=== PATIENT | female | born 1990 | race Caucasian/White ===

== ENCOUNTER 2020-09-19 22:30 | Emergency (ER) | payer BC ==
--- NOTE | 2020-09-19 23:03 | ERPHSYRPT ---
- History of Present Illness Time Seen by Provider: 09/19/20 23:01 Source: patient Exam Limitations: no limitations Patient Subjective Stated Complaint: Patient states " I have been having trouble trying to have a BM now for several weeks. I have only been able to get little christine and it is hard and I am now very miserable." Triage Nursing Assessment: Patient arrived to ED and ambulated back to room without difficulty. Patient A/O times 4. Patient able to follow instructions without difficulty. Patient states she has not had a normal BM in several weeks. Patient stated she is 8-9 weeks and she had same problem with her last . Patient stated she has had N/V over last week. Patient states she did take zofran last night. BS very hypoactive in all 4 quads. ABD is soft, tender upon palpitation. Patient stated she has tried an enema at home with no success. Patient states she has tried taking colace and eating greens and salads with no success. Patient states pain is cramping that will come on severe last a few minutes then go back away. Physician History: Patient states " I have been having trouble trying to have a BM now for several weeks. I have only been able to get little christine and it is hard and I am now very miserable." atient states she has not had a normal BM in several weeks. Patient stated she is 8-9 weeks and she had same problem with her last . Patient stated she has had N/V over last week. Patient states she did take zofran last night. BS very hypoactive in all 4 quads. ABD is soft, tender upon palpitation. Patient stated she has tried an enema at home with no success. Patient states she has tried taking colace and eating greens and salads with no success. Patient states pain is cramping that will come on severe last a few minutes then go back away. Timing/Duration: today Associated Symptoms: denies symptoms Allergies/Adverse Reactions: No Known Drug Allergies Allergy (Unverified 09/19/20 22:47) Home Medications: Vits W-Ca,Fe,FA(<1Mg) [] 1 tab PO DAILY 09/19/20 [History] Hx Tetanus, Diphtheria Vaccination/Date Given: Yes Hx Influenza Vaccination/Date Given: No Hx Pneumococcal Vaccination/Date Given: No Immunizations Up to Date: Yes Travel Risk - International Travel Have you traveled outside of the country in past 3 weeks: No - Coronavirus Screening Are you exhibiting any of the following symptoms?: No Close contact with a COVID-19 positive Pt in past 14-21 Days: No - Vaccine Status Have you recieved a Covid-19 vaccination: No - Review of Systems Constitutional: No Fever, No Chills Eyes: No Symptoms Ears, Nose, & Throat: No Symptoms Respiratory: No Cough, No Dyspnea Cardiac: No Chest Pain, No Edema, No Syncope Abdominal/Gastrointestinal: No Abdominal Pain, No Nausea, No Vomiting, No Diarrhea Genitourinary Symptoms: No Dysuria Musculoskeletal: No Back Pain, No Neck Pain Skin: No Rash Neurological: No Dizziness, No Focal Weakness, No Sensory Changes Psychological: No Symptoms Endocrine: No Symptoms All Other Systems: Reviewed and Negative - Past Medical History Pertinent Past Medical History: Yes Neurological History: No Pertinent History ENT History: No Pertinent History Cardiac History: No Pertinent History Respiratory History: Asthma Endocrine Medical History: No Pertinent History Musculoskeletal History: No Pertinent History GI Medical History: No Pertinent History History: No Pertinent History Psycho-Social History: No Pertinent History Female Reproductive Disorders: No Pertinent History - Past Surgical History Past Surgical History: Yes Neuro Surgical History: No Pertinent History Cardiac: No Pertinent History Respiratory: No Pertinent History Gastrointestinal: No Pertinent History Genitourinary: No Pertinent History Musculoskeletal: No Pertinent History Female Surgical History: Dilation & Curettage Other Surgical History: D&C 2017 - Social History Smoking Status: Former smoker Exposure to second hand smoke: No Drug Use: none Patient Lives Alone: No - Female History Hx Now: Yes Gestational Age: 8-9 weeks - Nursing Vital Signs Nursing Vital Signs: Initial Vital Signs Temperature 97.6 F 09/19/20 22:43 Pulse Rate 79 09/19/20 22:43 Respiratory Rate 20 09/19/20 22:43 Blood Pressure 144/80 09/19/20 22:43 O2 Sat by Pulse Oximetry 96 09/19/20 22:43 Pain Scale Pain Intensity 8 - Physical Exam General Appearance: no apparent distress, alert Eye Exam: PERRL/EOMI, eyes nml inspection Ears, Nose, Throat Exam: normal ENT inspection, TMs normal, pharynx normal, moist mucous membranes Neck Exam: normal inspection, non-tender, supple, full range of motion Respiratory Exam: normal breath sounds, lungs clear, No respiratory distress Cardiovascular Exam: regular rate/rhythm, normal heart sounds, normal peripheral pulses Gastrointestinal/Abdomen Exam: soft, normal bowel sounds, No tenderness, No mass Back Exam: normal inspection, normal range of motion, No CVA tenderness, No vertebral tenderness Extremity Exam: normal inspection, normal range of motion, pelvis stable Neurologic Exam: alert, oriented x 3, cooperative, normal mood/affect, nml cerebellar function, nml station & gait, sensation nml, No motor deficits Skin Exam: normal color, warm, dry, No rash Lymphatic Exam: No adenopathy SpO2: 96 - Course Nursing assessment & vital signs reviewed: Yes - Progress Progress: improved Counseled pt/family regarding: need for follow-up - Departure Departure Disposition: Home Clinical Impression: Constipation during in first trimester Condition: Stable Critical Care Time: No Referrals: JIGNA JUÁREZ [Primary Care Provider] - Instructions: Constipation, Adult (DC) Additional Instructions: LINDY SULLIVAN was seen on 09/19/20 n the Emergency Room. At that time you were treated for an emergent condition, during your visit Laboratory, Radiology and/or other procedures may have been ordered. It is very important that you follow-up with your Primary Care Physician JIGNA JUÁREZ within the next 24-48 hours to review your Emergency Room visit and the final results of testing that was ordered. Some test results such as Urine Cultures, Blood Cultures, and other cultures if ordered will not be finalized for 24-48 hours. If you do not have a Primary Care Provider please call the medical records department at [phone] to obtain a copy of your results or you may sign into our patient portal to obtain these results by visiting us @ [email or web address] and completing the following steps: 1. Click on the Patient Portal link 2. Click the Patient Self Enrollment Link to complete the enrollment form and entering your 3. Once the enrollment form is completed you will receive an email with a temporary ID and password at the email address you provided. 4. Next choose a user name and password. Your user name must be at least 4 characters long and your password must be at least 4 characters long. 5. Choose a security question from the list and provide your answer to the question. If you already have signed into the Health Portal you may access your Health Care Information 13/09 by the following steps: 1. Login to our website @ [email or web address] 2. Enter your original user name and password. FAQS The [facility] Health Portal is an online tool that contains your Lab Results, Radiology Reports, Visit History, Discharge Instructions and Health Summary Lab and Radiology Results will not be available for 72 hours on the portal. The Portal is a secure site, passwords are encryted and URLs are re-written so they cannot be copied and pasted. You and authorized family members are the only ones who can access your Portal. Also there is a timeout feature that protects your information if you leave the Portal page open. If you have technical difficulty please use the Contact Us link on the page this will allow you to submit any questions you have regarding the Portal or you may contact the Medical Record Department at [phone].
[2020-09-19 23:44] VITALS: BP 141/77; PULSE 78; O2SAT 98
== END 2020-09-19 23:49 | disposition home or self-care (01) ==
LOC: ED 22:30
DX: O26.891 Other specified pregnancy related conditions, first trimester (principal); K59.00 Constipation, unspecified; Z3A.09 9 weeks gestation of pregnancy
CPT/HCPCS: 99283

== ENCOUNTER 2020-11-27 18:51 | Emergency (ER) | payer BC ==
[2020-11-27 19:36] VITALS: O2SAT 99
--- NOTE | 2020-11-27 20:43 | ERPHSYRPT ---
- History of Present Illness Time Seen by Provider: 11/27/20 19:30 Historian: patient Exam Limitations: no limitations Patient Subjective Stated Complaint: pt states she thinks she has an ovarian cyst. states she has been having pain in the rt abd for the last 2 days. Triage Nursing Assessment: pt alert and oriented, answers questions approp. pt ambulatory with steady gait noted. respirations nonlabored. skin pink warm and dry. abd nontender, bowel sounds hypo. Physician History: Patient is a 30-year-old female with a history of a right ovarian cyst and torsion presents today with complaints of possible torsion. Patient complains of right pelvic pain similar to pain she had when she was diagnosed with torsion. At that time she had an ovarian cyst. Patient had an ultrasound and August that shows a recurrence of the ovarian cyst. Patient was supposed to follow-up regarding the cyst but never did. Patient's pain at this point is constant mild to moderate in intensity. No specific worsening improving factor s. No associated trauma. No nausea or vomiting. No diarrhea. No rash. No vaginal discharge no vaginal bleeding. Patient declined the possibility of STI. Symptoms are constant. Symptoms are moderate in intensity. Timing/Duration: today Activities at Onset: none Quality: aching Abdominal Pain Onset Location: other (Right side of pelvis.) Pain Radiation: no radiation Severity of Pain-Max: moderate Severity of Pain-Current: mild Modifying Factors: Improves With: nothing Associated Symptoms: denies symptoms Allergies/Adverse Reactions: No Known Drug Allergies Allergy (Verified 11/27/20 19:36) Home Medications: Ondansetron [Ondansetron Odt] 4 mg PO Q6H PRN PRN 09/19/20 [History] Vits W-Ca,Fe,FA(<1Mg) [] 1 tab PO DAILY 09/19/20 [History] Hx Tetanus, Diphtheria Vaccination/Date Given: Yes Hx Influenza Vaccination/Date Given: No Hx Pneumococcal Vaccination/Date Given: No Immunizations Up to Date: Yes Travel Risk - International Travel Have you traveled outside of the country in past 3 weeks: No - Coronavirus Screening Are you exhibiting any of the following symptoms?: No Close contact with a COVID-19 positive Pt in past 14-21 Days: No - Vaccine Status Have you recieved a Covid-19 vaccination: No - Review of Systems Constitutional: No Symptoms, No Fever, No Chills Eyes: No Symptoms Ears, Nose, & Throat: No Symptoms Respiratory: No Symptoms, No Cough, No Dyspnea Cardiac: No Symptoms, No Chest Pain, No Edema, No Syncope Abdominal/Gastrointestinal: No Symptoms, No Abdominal Pain, No Nausea, No Vomiting, No Diarrhea Genitourinary Symptoms: No Symptoms, No Dysuria Musculoskeletal: No Symptoms, No Back Pain, No Neck Pain Skin: No Symptoms, No Rash Neurological: No Symptoms, No Dizziness, No Focal Weakness, No Sensory Changes Psychological: No Symptoms Endocrine: No Symptoms Hematologic/Lymphatic: No Symptoms Immunological/Allergic: No Symptoms All Other Systems: Reviewed and Negative - Past Medical History Pertinent Past Medical History: Yes Neurological History: No Pertinent History ENT History: No Pertinent History Cardiac History: No Pertinent History Respiratory History: Asthma Endocrine Medical History: No Pertinent History Musculoskeletal History: No Pertinent History GI Medical History: No Pertinent History History: No Pertinent History Psycho-Social History: No Pertinent History Female Reproductive Disorders: Other Other Medical History: ovarian cysts - Past Surgical History Past Surgical History: Yes Neuro Surgical History: No Pertinent History Cardiac: No Pertinent History Respiratory: No Pertinent History Gastrointestinal: No Pertinent History Genitourinary: No Pertinent History Musculoskeletal: No Pertinent History Female Surgical History: Dilation & Curettage Other Surgical History: D&C 2017 - Social History Smoking Status: Former smoker Exposure to second hand smoke: No Drug Use: none Patient Lives Alone: No - Female History Hx Last Menstrual Period: july 16 Hx Now: Yes Expected Date of Delivery: 04/28/21 Gestational Age: 18 weeks - Nursing Vital Signs Nursing Vital Signs: Initial Vital Signs Pulse Rate 94 H 11/27/20 19:22 Respiratory Rate 16 11/27/20 19:22 Blood Pressure 125/88 11/27/20 19:22 O2 Sat by Pulse Oximetry 99 11/27/20 19:22 Pain Scale Pain Intensity 5 - Physical Exam General Appearance: no apparent distress, alert Eye Exam: PERRL/EOMI, eyes nml inspection Ears, Nose, Throat Exam: normal ENT inspection, pharynx normal, moist mucous membranes Neck Exam: normal inspection, non-tender, supple, full range of motion Respiratory Exam: normal breath sounds, lungs clear, airway intact, No respiratory distress Cardiovascular Exam: regular rate/rhythm, normal heart sounds Gastrointestinal/Abdomen Exam: soft, No tenderness, No mass Pelvic Exam: other (Tenderness to palpation at area of right adnexa.) Back Exam: normal inspection, normal range of motion, No CVA tenderness, No vertebral tenderness Extremity Exam: normal inspection, normal range of motion, pelvis stable Neurologic Exam: alert, oriented x 3, cooperative, normal mood/affect, nml cereb ellar function, sensation nml, No motor deficits Skin Exam: normal color, warm, dry SpO2 Interpretation: normal SpO2: 99 O2 Delivery: Room Air - Course Nursing assessment & vital signs reviewed: Yes - Radiology Ultrasound Exam Pelvis Ultrasound: discussed w/radiologist (Per armature tester fetus appears well normal heart tones. No torsion. Good blood flow bilateral ovaries) Ordered Tests: Active Orders 24 hr Category Date Time Status OB >14 WKS 1st GESTATION [US] Stat Exams 11/27/20 19:57 Taken UA W/RFX UR CULTURE Stat Lab 11/27/20 21:54 Completed Medication Summary Generic Name Dose Route Start Last Admin Trade Name Freq PRN Reason Stop Dose Admin Nitrofurantoin Macrocrystals 100 mg 11/27/20 22:37 Macrobid 100mg Capsule PO 11/27/20 22:38 STAT ONE Discontinued Medications Generic Name Dose Route Start Last Admin Trade Name Freq PRN Reason Stop Dose Admin Acetaminophen 975 mg 11/27/20 21:53 11/27/20 21:56 Tylenol 325 Mg PO 11/27/20 21:54 975 mg STAT ONE Administration Acetaminophen Confirm 11/27/20 21:55 Tylenol 325 Mg Administered 11/27/20 21:56 Dose 975 mg .ROUTE .STK-MED ONE Lab/Rad Data: Laboratory Results 11/27/20 Range/Units 21:54 Urine Color YELLOW (YELLOW) Urine Appearance SLIGHTLY CLOUDY (CLEAR) Urine pH 6.0 (5-6) Ur Specific [place] 1.020 (1.005-1.025) Urine Protein NEGATIVE (Negative) Urine Ketones SMALL (NEGATIVE) Urine Blood NEGATIVE (0-5) Jason/ul Urine Nitrite NEGATIVE (NEGATIVE) Urine Bilirubin NEGATIVE (NEGATIVE) Urine Urobilinogen NEGATIVE (0-1) mg/dL Ur Leukocyte Esterase SMALL (NEGATIVE) Urine WBC (Auto) 6-10 (0-5) /HPF Urine RBC (Auto) 6-10 (0-2) /HPF U Epithel Cells (Auto) RARE (FEW) /HPF Urine Bacteria (Auto) RARE (NEGATIVE) /HPF Urine Mucus (Auto) SLIGHT (NEGATIVE) /HPF Urine Culture Reflexed NO (NO) Urine Glucose NEGATIVE (NEGATIVE) mg/dL - Progress Progress: improved Progress Note: Patient reassessed. Patient received Tylenol for pain. She feels much better. Pelvic ultrasound negative for torsion. Urinalysis reveals a urinary tract infection. Patient received a dose of Macrobid in our ED. He prescription for the same was forwarded to patient's pharmacy. Patient agrees to follow-up with a primary care doctor within 48 hours for evaluation. She voices no other complaints concerns at this time. Will discharge home. Portions of this note were created with voice recognition technology. There may be grammatical, spelling, punctuation or sound alike errors 11/27/20 22:40 Counseled pt/family regarding: lab results, diagnosis, need for follow-up, rad results - Departure Departure Disposition: Home Clinical Impression: UTI (urinary tract infection) Condition: Stable Critical Care Time: No Referrals: JIGNA KELSEY [Primary Care Provider] - Additional Instructions: Discharge/Care Plan LINDY SULLIVAN was seen on 11/27/20 in the Emergency Room. The patient was counseled regarding Diagnosis,Lab results, Imaging studies, need for follow up and when to return to the Emergency Room. Prescriptions given: Discharge Note I have spoken with the patient and/or caregivers. I have explained the patient's condition, diagnosis and treatment plan based on the information available to me at this time. I have answered the patient's and/or caregiver's questions and addressed any concerns. The patient and/or caregivers have as good understanding of the patient's diagnosis, condition and treatment plan as can be expected at this point. The vital signs have been stable. The patient's condition is stable and appropriate for discharge from the emergency department. The patient will pursue further outpatient evaluation with the primary care physician or other designated or consulting physician as outlined in the discharge instructions. The patient and/or caregivers are agreeable to this plan of care and follow-up instructions have been explained in detail. The patient and/or caregivers have received these instruction. The patient/and or caregivers are aware that any significant change in condition or worsening of symptoms should prompt an immediate return to this or the closest emergency department or call 911. Prescriptions: Nitrofurantoin Macro 100 mg [Macrobid 100MG Capsule] 100 mg PO BID 7 Days #14 cap
[2020-11-27] MEDS ORDERED: TYLENOL 325 MG PO ONE (21:53)
[2020-11-27] MEDS ORDERED: TYLENOL 325 MG ONE (21:55)
[2020-11-27 22:29] LABS: Appearance SLIGHTLY CLOUDY (CLEAR); Bacteria RARE /HPF (NEGATIVE); Bilirubin NEGATIVE (NEGATIVE); Blood NEGATIVE Ery/ul (0-5); Epithelial Cells RARE /HPF (FEW); Glucose NEGATIVE (NEGATIVE); Ketones SMALL (NEGATIVE); Leukocyte Esterase SMALL (NEGATIVE); Mucus SLIGHT /HPF (NEGATIVE); Nitrite NEGATIVE (NEGATIVE); Protein,Urine Dip NEGATIVE (Negative); Urobilinogen NEGATIVE mg/dL (0-1)
[2020-11-27 22:33] VITALS: BP 132/65; PULSE 101
[2020-11-27] MEDS ORDERED: Macrobid 100MG Capsule PO ONE (22:37)
[2020-11-27] MEDS ORDERED: Macrobid 100MG Capsule ONE (22:43)
--- NOTE | 2020-11-28 08:54 | XRAY ---
Indication: Right pelvic pain. Torsion. Two-dimensional OB ultrasound performed. Comparison: September 03, 2020. Again single viable intrauterine currently in breech presentation with heart rate 139 BPM. Posterior placenta without abruption/previa. Right ovary measures 4.1 x 3.2 x 3.3 cm and demonstrates normal perfusion. Left ovary not seen. No suspicious adnexal mass. BPD measures 4.25 cm corresponding to 18 weeks 6 days. HC measures 15.50 cm corresponding to 18 weeks 3 days. AC measures 12.86 cm corresponding to 18 weeks 3 days. FL measures 2.88 cm corresponding to 18 weeks 6 days. GERALD is 14.7 cm. Impression: Again single viable intrauterine with mean gestational age 18 weeks 5 days. Normal progression of . No new/acute findings. Comment: Preliminary report was given.
== END 2020-11-27 22:49 | disposition home or self-care (01) ==
LOC: ED 18:51
DX: O23.42 Unspecified infection of urinary tract in pregnancy, second trimester (principal); N39.0 Urinary tract infection, site not specified; Z3A.18 18 weeks gestation of pregnancy; R10.9 Unspecified abdominal pain
CPT/HCPCS: 76805; 81001; 99284; A9270-GY

== ENCOUNTER 2021-03-04 16:38 | Observation (INO) | payer BC ==
[2021-03-04 17:30] VITALS: BP 112/79; PULSE 118; O2SAT 98
[2021-03-04 17:47] LABS: INFLUENZA A NEGATIVE (NEGATIVE); INFLUENZA B NEGATIVE (NEGATIVE); RESPIRATORY SYNCTIAL VIRUS NEGATIVE (Negative)
[2021-03-04 17:58] LABS: SARS-CoV-2 Xpert Express POSITIVE (NEGATIVE)
== END 2021-03-04 18:55 | disposition home or self-care (01) ==
LOC: OB 16:38 → MED SURG 17:09
PROVIDERS: ADMIT Family Medicine; ATTEND Family Medicine
DX: Z34.83 Encounter for supervision of other normal pregnancy, third trimester (principal); Z3A.31 31 weeks gestation of pregnancy; Z20.828 Contact with and (suspected) exposure to other viral communicable diseases
CPT/HCPCS: 0241U; G0378

== ENCOUNTER 2021-11-18 13:08 | Emergency (ER) | payer BC ==
--- NOTE | 2021-11-18 13:14 | ERPHSYRPT ---
- History of Present Illness Time Seen by Provider: 11/18/21 13:14 Source: patient Exam Limitations: no limitations Physician History: This is a 31-year-old white female who left eye/orbit pain that she describes as a scratching sensation that is not in one particular area but moves around the eye. Symptoms are worse in the morning and then dissipate as the day progresses. It is been present for about a month. In the last couple days she has noticed a little bit of blurriness that is short-lived. She has no blurred vision today. She denies any trauma to the eye. Patient has not seen an fleet director for this. Prior to approximately 1 month ago, she is never had anything like this before. Patient's primary care doctor is Dr. Lemule Chen. Timing/Duration: other Location: left eye Severity: mild Apparent Injury: possibly Associated Symptoms: itching, redness, blurred vision Visual Assistive Devices: None Chemical Exposure: No Trauma: No Welding Arc/Tanning Bed Exposure: No Allergies/Adverse Reactions: No Known Drug Allergies Allergy (Verified 11/18/21 13:16) Home Medications: Ethinyl Estradiol/Drospirenone [Vestura 3 mg-0.02 mg Tablet] 1 tab PO DAILY 11/18/21 [History] Hx Tetanus, Diphtheria Vaccination/Date Given: Yes Hx Influenza Vaccination/Date Given: No Hx Pneumococcal Vaccination/Date Given: No Travel Risk - International Travel Have you traveled outside of the country in past 3 weeks: No - Coronavirus Screening Are you exhibiting any of the following symptoms?: No Close contact with a COVID-19 positive Pt in past 14-21 Days: No - Vaccine Status Have you recieved a Covid-19 vaccination: No - Vaccination Dates Comment: pt has congestion in house covid test ordered - Review of Systems Constitutional: No Symptoms Eyes: Foreign Body Sensation Ears, Nose, & Throat: No Symptoms Respiratory: No Symptoms Cardiac: No Symptoms Abdominal/Gastrointestinal: No Symptoms Genitourinary Symptoms: No Symptoms Musculoskeletal: No Symptoms Skin: No Symptoms Neurological: No Symptoms Psychological: No Symptoms Endocrine: No Symptoms Hematologic/Lymphatic: No Symptoms Immunological/Allergic: No Symptoms All Other Systems: Reviewed and Negative - Past Medical History Pertinent Past Medical History: Yes Neurological History: No Pertinent History ENT History: No Pertinent History Cardiac History: No Pertinent History Respiratory History: Asthma Endocrine Medical History: No Pertinent History Musculoskeletal History: No Pertinent History GI Medical History: No Pertinent History History: No Pertinent History Psycho-Social History: No Pertinent History Female Reproductive Disorders: Other Other Medical History: ovarian cysts - Past Surgical History Past Surgical History: Yes Neuro Surgical History: No Pertinent History Cardiac: No Pertinent History Respiratory: No Pertinent History Gastrointestinal: No Pertinent History Genitourinary: No Pertinent History Musculoskeletal: No Pertinent History Female Surgical History: Dilation & Curettage Other Surgical History: D&C 2018 - Social History Smoking Status: Former smoker Exposure to second hand smoke: No Drug Use: none Patient Lives Alone: No - Nursing Vital Signs Nursing Vital Signs: Initial Vital Signs Temperature 98 F 11/18/21 13:18 Pulse Rate 83 11/18/21 13:18 Respiratory Rate 17 11/18/21 13:18 Blood Pressure 135/78 11/18/21 13:18 O2 Sat by Pulse Oximetry 99 11/18/21 13:18 Pain Scale Pain Intensity 4 - Physical Exam General Appearance: no apparent distress, alert, anxiety Eye Exam: right eye: normal inspection, left eye: conjunctival inflammation, bilateral eye: PERRL, EOMI Ears, Nose, Throat Exam: normal ENT inspection, moist mucous membranes Neck Exam: normal inspection, non-tender, supple, full range of motion Respiratory Exam: airway intact, No chest tenderness, No respiratory distress Gastrointestinal Exam: No tenderness Extremity Exam: normal inspection, normal range of motion, pelvis stable Neurologic: alert, oriented x 3, cooperative, 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 cutting 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-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 nml as tested, normal mood/affect, nml cerebellar function, nml station & gait, sensation nml Skin Exam: normal color, warm, dry Lymphatic: No adenopathy SpO2 Interpretation: normal O2 Delivery: Room Air - Course Nursing assessment & vital signs reviewed: Yes Ordered Tests: Active Orders 24 hr Category Date Time Status FACIAL BONES WO CONTRAST [CT] Stat Exams 11/18/21 13:40 Completed Medication Summary Discontinued Medications Generic Name Dose Route Start Last Admin Trade Name Freq PRN Reason Stop Dose Admin Tetracaine HCl 4 ml 11/18/21 13:24 11/18/21 13:26 Tetracaine Hcl/Pf 4 Ml Bottle OP 11/18/21 13:25 4 ml STAT STA Administration Tetracaine HCl Confirm 11/18/21 13:26 Tetracaine Hcl/Pf 4 Ml Bottle Administered 11/18/21 13:27 Dose 4 ml OP .STK-MED ONE - Progress Progress: improved Counseled pt/family regarding: diagnosis, need for follow-up, rad results - Departure Departure Disposition: Home Clinical Impression: Conjunctivitis, left eye, Pansinusitis Condition: Stable Critical Care Time: No Referrals: JIGNA KELSEY [Primary Care Provider] - Follow up/PCP as directed Additional Instructions: Use medication as prescribed. Follow-up with fleet director as scheduled appointment date and time Prescriptions: Prednisone 10 mg [Deltasone 10 mg] 10 mg PO TID #12 tablet Neomycin/Polymyxin B/Hydrocort [Kyzwhhzh-Fyez-Yl Eye Drops] 2 drops OP Q4H #7.5 ml Azithromycin 250 mg [Zithromax 250 MG TABLET] 250 mg PO ZPACK #6 tablet
[2021-11-18] MEDS ORDERED: TETRACAINE 0.5% STERI-UNIT SOL OP STA (13:24)
[2021-11-18] MEDS ORDERED: TETRACAINE 0.5% STERI-UNIT SOL OP ONE (13:26)
[2021-11-18 15:02] VITALS: BP 125/94; PULSE 66; O2SAT 93
--- NOTE | 2021-11-18 15:26 | XRAY ---
Exam: CT of the facial bones without IV contrast from 11/18/2021. CTDI: 33.36 mGy Comparison: None. Indication: 31-year-old female complains of left eye pain with constant "scratching feeling" behind left orbit for 3 weeks; no known injury; left orbit pain and redness; inability to keep eye open. Technique: Non-IV contrast axial images were obtained through the facial bones. Reconstructed coronal and sagittal images were created and reviewed. Findings: The paranasal sinuses are almost completely opacified with fluid and/or soft tissue density with only minimal aeration remaining within the right frontal ethmoid recess. The findings are most consistent with pansinusitis of indeterminate age. The globes of each eye appear unremarkable. I see no findings of asymmetric soft tissue thickening within the anterior aspect of either orbit. The optic nerves appears symmetric. Extraocular muscles appear normal. No other retro-orbital process is seen. I see no fracture or other aggressive osseous process. No other orbital abnormality is seen. The parotid glands and submandibular glands appear symmetric. Some small submandibular lymph nodes are seen bilaterally, a bit more prominent on the right than left. The largest lymph node on the right measures 0.7 cm in short axis. Impression: 1. CT findings consistent with pansinusitis with only minimal aeration remaining within the right frontal-ethmoid recess. Correlate clinically. 2. No other significant abnormality is seen within either orbit. Correlate clinically.
== END 2021-11-18 15:50 | disposition home or self-care (01) ==
LOC: ED 13:08
DX: H10.9 Unspecified conjunctivitis (principal); J32.4 Chronic pansinusitis; H57.12 Ocular pain, left eye; Z79.52 Long term (current) use of systemic steroids; Z28.310 Unvaccinated for COVID-19
CPT/HCPCS: 70486; 99282

== ENCOUNTER 2022-05-07 17:03 | Emergency (ER) | payer BC ==
--- NOTE | 2022-05-07 17:13 | ERPHSYRPT ---
- History of Present Illness Time Seen by Provider: 05/07/22 17:13 Source: patient Exam Limitations: no limitations Physician History: Patient cut her index finger on her right hand w/ a knife while doing dishes. She reports that she feels like she can see the bone. She currently has 8/10 pain surrounding the area. The knife was clean at time of laceration. Timing/Duration: today Quality: painful Severity: moderate Location: hands Possible Causes: other (knife injury) Modifying Factors: Improves With: other (na) Associated Symptoms: edema, other (bleeding), No paresthesia, No tingling Allergies/Adverse Reactions: No Known Drug Allergies Allergy (Verified 05/07/22 17:24) Home Medications: Ethinyl Estradiol/Drospirenone [Vestura 3 mg-0.02 mg Tablet] 1 tab PO DAILY 11/18/21 [History] Hx Tetanus, Diphtheria Vaccination/Date Given: Yes Hx Influenza Vaccination/Date Given: No Hx Pneumococcal Vaccination/Date Given: No Travel Risk - Vaccine Status Have you recieved a Covid-19 vaccination: No - Vaccination Dates Comment: pt has congestion in house covid test ordered - Review of Systems Constitutional: No Symptoms Respiratory: No Symptoms Cardiac: No Symptoms Abdominal/Gastrointestinal: No Symptoms Skin: Other (laceration index finger on right hand, bleeding, painful) Neurological: No Symptoms - Past Medical History Pertinent Past Medical History: Yes Neurological History: No Pertinent History ENT History: No Pertinent History Cardiac History: No Pertinent History Respiratory History: Asthma Endocrine Medical History: No Pertinent History Musculoskeletal History: No Pertinent History GI Medical History: No Pertinent History History: No Pertinent History Psycho-Social History: No Pertinent History Female Reproductive Disorders: Other Other Medical History: ovarian cysts - Past Surgical History Past Surgical History: Yes Neuro Surgical History: No Pertinent History Cardiac: No Pertinent History Respiratory: No Pertinent History Gastrointestinal: No Pertinent History Genitourinary: No Pertinent History Musculoskeletal: No Pertinent History Female Surgical History: Dilation & Curettage Other Surgical History: D&C 2018 - Social History Smoking Status: Former smoker Exposure to second hand smoke: No Drug Use: none Patient Lives Alone: No - Nursing Vital Signs Nursing Vital Signs: Initial Vital Signs Temperature 98.7 F 05/07/22 17:12 Pulse Rate 122 H 05/07/22 17:12 Blood Pressure 106/74 05/07/22 17:12 O2 Sat by Pulse Oximetry 97 05/07/22 17:12 Pain Scale Pain Intensity 9 - Physical Exam General Appearance: no apparent distress Respiratory Exam: airway intact, No respiratory distress Cardiovascular Exam: normal heart sounds, tachycardia Extremity Exam: other (zone IV laceration of 2nd MCP joint w/ extensor tendon injury, lost 15 degrees of extension, capsule injured w/ joint exposed, sensation intact) Neurologic Exam: alert, oriented x 3, cooperative Skin Exam: laceration (2cm curvilinear laceration over zone IV of 2nd MCP) SpO2 Interpretation: normal O2 Delivery: Room Air Procedures - Laceration/Wound Repair Right Dorsal Finger Wound Location: Right, hand (Zone IV 2nd MCP on dorsal aspect) Wound Length (cm): 2 Wound's Depth, Shape: irregular (through extensor tendon, capsule) Wound Explored: no foreign body noted Irrigated: Yes Hibiclens Prep: Yes Anesthesia: 1% Lidocaine Volume Anesthetic (ccs): 3 Wound Debrided: minimal Wound Repaired With: sutures Suture Size/Type: 4-0, prolene Number of Sutures: 4 Layer Closure?: No Sterile Dressing Applied?: Yes Splint Applied?: Yes Type of Splint Applied: OCL placed on volar aspect of 2nd phalanx to keep in extension, dressed w/ xeroform, 4x4s, cast padding and ct bandage - Course Nursing assessment & vital signs reviewed: Yes Ordered Tests: Medication Summary Discontinued Medications Generic Name Dose Route Start Last Admin Trade Name Kristianq PRN Reason Stop Dose Admin Ceftriaxone Sodium 1,000 mg 05/07/22 19:23 05/07/22 19:25 Ceftriaxone Sodium 1000 Mg Inj Vial IM 05/07/22 19:24 1,000 mg STAT ONE Administration Ceftriaxone Sodium Confirm 05/07/22 19:24 Ceftriaxone Sodium 1000 Mg Inj Vial Administered 05/07/22 19:25 Dose 1,000 mg .ROUTE .STK-MED ONE Diphtheria/Tetanus/Acell Pertussis 0.5 ml 05/07/22 17:21 05/07/22 17:31 Tdap --Diph,Pertuss(Acell),Tet Vac/Pf 0.5 Ml Vial IM 05/07/22 17:22 0.5 ml .ONCE ONE Administration Diphtheria/Tetanus/Acell Pertussis Confirm 05/07/22 17:28 Tdap --Diph,Pertuss(Acell),Tet Vac/Pf 0.5 Ml Vial Administered 05/07/22 17:29 Dose 0.5 ml IM .STK-MED ONE Cefazolin Sodium/Dextrose 50 mls @ 100 mls/hr 05/07/22 17:21 Kefzol 1 Gm/50 Ml Premix IV 05/07/22 17:50 STAT ONE Cefazolin Sodium/Dextrose 50 mls @ 100 mls/hr 05/07/22 19:00 Kefzol 1 Gm/50 Ml Premix IV 05/07/22 19:29 STAT ONE Cefazolin Sodium/Dextrose 50 mls @ 100 mls/hr 05/07/22 19:18 Kefzol 1 Gm/50 Ml Premix IV 05/07/22 19:46 STAT ONE Cefazolin Sodium/Dextrose 1 gm in 50 mls @ 100 mls/hr 05/07/22 19:18 05/07/22 19:21 Kefzol 1 Gm/50 Ml Premix IV 05/07/22 19:47 Not Given STAT STA Lidocaine HCl 5 ml 05/07/22 17:21 05/07/22 17:30 Lidocaine Hcl 1% 20 Ml Mdv 20 Ml Ml IJ 05/07/22 17:22 5 ml STAT ONE Administration Lidocaine HCl Confirm 05/07/22 17:28 Lidocaine Hcl 1% 20 Ml Mdv 20 Ml Ml Administered 05/07/22 17:29 Dose 5 ml .ROUTE .STK-MED ONE Morphine Sulfate 2 mg 05/07/22 17:24 05/07/22 17:31 Morphine Sulfate 2 Mg/Ml Inj IV 05/07/22 17:25 2 mg STAT ONE Administration Morphine Sulfate Confirm 05/07/22 17:28 Morphine Sulfate 2 Mg/Ml Inj Administered 05/07/22 17:29 Dose 2 mg .ROUTE .STK-MED ONE Ondansetron HCl Confirm 05/07/22 17:28 Zofran 4 Mg/Udtablet Orally Disintegrating Administered 05/07/22 17:29 Dose 4 mg .ROUTE .STK-MED ONE Ondansetron HCl 4 mg 05/07/22 17:32 05/07/22 17:33 Zofran 4 Mg/Udtablet Orally Disintegrating PO 05/07/22 17:33 4 mg STAT ONE Administration - Progress Progress: unchanged Progress Note: Decision was made to close the wound w/ 4, 4-0 prolene sutures and keep digit in extension until f/u w/ Dr. Newby. I spoke w/ him over the phone and he recommended Ancef in ER, d/c w/ Keflex, f/u on Tuesday [facility] for surgical evaluation. Patient agrees w/ plan. Discussed with Dr.: Other (Dr. Newby) Will see patient in: office Counseled pt/family regarding: diagnosis, need for follow-up Medical Desision Making - Discussion of managment Care discussed with:: specialist Reviewed:: Need for additional workup Agreed on:: Treatment plan, need for follow-up Will see patient: In office - Risk of complications The pt has a mod risk of morbidity or mortality based on: Need for prescription drug management - Departure Departure Disposition: Home Clinical Impression: Laceration, Laceration of tendon of finger Condition: Good Critical Care Time: No Referrals: URSULA NEWBY [NON-STAFF PHY W/O PRIVILEGES] - Follow up/PCP as directed JIGNA KELSEY [Primary Care Provider] - Follow up/PCP as directed Instructions: Tendon Laceration (DC) Prescriptions: Hydrocodone/Acetaminophen [Hydrocodone-Acetamin 5-325 mg] 1 tab PO Q6HPRN PRN 3 Days #12 tablet MDD 4 PRN Reason: Pain Cephalexin Mh 500 mg [Keflex 500 mg] 500 mg PO TID 7 Days #21 cap ondansetron HCL [Ondansetron HCl] 4 mg PO Q8H 5 Days #15 tablet Tramadol HCl 50 mg [Ultram 50 mg] 50 mg PO Q6H 5 Days #20 tablet
[2022-05-07] MEDS ORDERED: Adacel Vial IM ONE ×2 (17:21→17:28)
[2022-05-07] MEDS ORDERED: KEFZOL 1 GM/50 ML PREMIX** 50 ML IV ONE ×3 (17:21→19:18)
[2022-05-07] MEDS ORDERED: XYLOCAINE 1% HCL 20 ML MDV IJ ONE (17:21)
[2022-05-07] MEDS ORDERED: MORPHINE SULFATE 2 MG INJ IV ONE (17:24)
[2022-05-07] MEDS ORDERED: XYLOCAINE 1% HCL 20 ML MDV ONE (17:28)
[2022-05-07] MEDS ORDERED: ZOFRAN ODT 4 MG ONE (17:28)
[2022-05-07] MEDS ORDERED: MORPHINE SULFATE 2 MG INJ ONE (17:28)
[2022-05-07] MEDS ORDERED: ZOFRAN ODT 4 MG PO ONE (17:32)
[2022-05-07] MEDS ORDERED: KEFZOL 1 GM/50 ML PREMIX** 1 GM/50 ML IVPB IV STA (19:18)
[2022-05-07] MEDS ORDERED: Rocephin 1000 MG INJ IM ONE (19:23)
[2022-05-07] MEDS ORDERED: Rocephin 1000 MG INJ ONE (19:24)
[2022-05-07 19:46] VITALS: BP 124/79; PULSE 92; O2SAT 99
== END 2022-05-07 19:44 | disposition home or self-care (01) ==
LOC: ED 17:03
DX: S66.929A Laceration of unspecified muscle, fascia and tendon at wrist and hand level, unspecified hand, initial encounter (principal); W26.0XXA Contact with knife, initial encounter; Y93.G1 Activity, food preparation and clean up; Z79.891 Long term (current) use of opiate analgesic; Z28.310 Unvaccinated for COVID-19
CPT/HCPCS: 12001; 90471; 90715; 96372; 99284; J0696; J2270; Q0162

== ENCOUNTER 2022-12-29 19:39 | Emergency (ER) | payer BC ==
[2022-12-29] MEDS ORDERED: Compazine 10 MG/2 ML IV ONE (19:56)
[2022-12-29] MEDS ORDERED: BENADRYL 50 MG/ML IV ONE (19:56)
[2022-12-29] MEDS ORDERED: Sodium Chloride 0.9% 1000 ML 1,000 ML IV STA (19:56)
[2022-12-29] MEDS ORDERED: TORAdol 30 mg Injection IV ONE (19:56)
[2022-12-29 19:58] VITALS: TEMP 97
[2022-12-29] MEDS ORDERED: Compazine 10 MG/2 ML ONE (19:59)
[2022-12-29] MEDS ORDERED: Sodium Chloride 0.9% 1000 ML 1,000 ML ONE (19:59)
[2022-12-29] MEDS ORDERED: BENADRYL 50 MG/ML ONE (19:59)
[2022-12-29] MEDS ORDERED: TORAdol 30 mg Injection ONE (19:59)
--- NOTE | 2022-12-29 20:03 | ERPHSYRPT ---
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 Headache has been constant. Patient has been feeling nauseous and dizzy. Patient took Tylenol today at 1830. No significant improvement. No trauma. No fever. No neck pain. There is some photophobia. Some light sensitivity. No recent back procedures. Symptoms are constant. Symptoms are moderate in intensity. No specific worsening or improving factors. Patient voices no other complaints or concerns at this time. Portions of this note were created with voice recognition technology. There may be grammatical, spelling, punctuation or sound alike errors Timing/Duration: yesterday Severity: moderate Associated Symptoms: nausea, other (Dizziness) Allergies/Adverse Reactions: No Known Drug Allergies Allergy (Verified 12/29/22 19:50) Home Medications: Citalopram Hydrobromide 20 mg* [ceLEXa 20 MG] 20 mg PO DAILY 12/29/22 [History] Ethinyl Estradiol/Drospirenone [Vestura 3 mg-0.02 mg Tablet] 1 each PO DAILY 12/29/22 [History] Semaglutide [Ozempic] 0.25 mg SQ WEEKLY 12/29/22 [History] Hx Tetanus, Diphtheria Vaccination/Date Given: Yes Hx Influenza Vaccination/Date Given: No Hx Pneumococcal Vaccination/Date Given: No Travel Risk - International Travel Have you traveled outside of the country in past 3 weeks: No - Coronavirus Screening Are you exhibiting any of the following symptoms?: Yes Symptoms: Vomiting/Diarrhea, Headaches/Body Aches/Fatigue Close contact with a COVID-19 positive Pt in past 14-21 Days: No - Vaccine Status Have you recieved a Covid-19 vaccination: No - Vaccination Dates Comment: pt has congestion in house covid test ordered - Review of Systems Constitutional: No Symptoms, No Fever, No Chills Eyes: No Symptoms Ears, Nose, & Throat: No Symptoms, Throat Swelling Respiratory: No Cough, No Dyspnea Cardiac: No Symptoms, No Chest Pain, No Edema, No Syncope Abdominal/Gastrointestinal: No Symptoms, No Abdominal Pain, No Nausea, No Vomiting, No Diarrhea Genitourinary Symptoms: No Symptoms, No Dysuria Musculoskeletal: No Symptoms, No Back Pain, No Neck Pain Skin: No Symptoms, No Rash Neurological: No Symptoms, No Dizziness, No Focal Weakness, No Sensory Changes Psychological: No Symptoms Endocrine: No Symptoms Hematologic/Lymphatic: No Symptoms Immunological/Allergic: No Symptoms All Other Systems: Reviewed and Negative - Past Medical History Pertinent Past Medical History: Yes Neurological History: No Pertinent History ENT History: No Pertinent History Cardiac History: No Pertinent History Respiratory History: Asthma, Other Endocrine Medical History: Other Musculoskeletal History: Other GI Medical History: No Pertinent History History: No Pertinent History Psycho-Social History: No Pertinent History Female Reproductive Disorders: Other Other Medical History: Gestational Diabetes (x2 pregnancies), COVID-19 x2, broken arms (x2), tonsillectomy, D&C (2018) - Past Surgical History Past Surgical History: Yes Neuro Surgical History: No Pertinent History Cardiac: No Pertinent History Respiratory: No Pertinent History Gastrointestinal: No Pertinent History Genitourinary: No Pertinent History Musculoskeletal: No Pertinent History Female Surgical History: Dilation & Curettage Other Surgical History: D&C 2018 - Social History Smoking Status: Light tobacco smoker Exposure to second hand smoke: No Drug Use: none Patient Lives Alone: No - Female History Hx Now: No - Nursing Vital Signs Nursing Vital Signs: Initial Vital Signs Temperature 97 F 12/29/22 19:50 Pulse Rate 100 H 12/29/22 19:50 Respiratory Rate 22 12/29/22 19:50 Blood Pressure 116/77 12/29/22 19:50 O2 Sat by Pulse Oximetry 97 12/29/22 19:50 Pain Scale Pain Intensity 8 - Physical Exam General Appearance: no apparent distress, alert Eye Exam: PERRL/EOMI, eyes nml inspection Ears, Nose, Throat Exam: normal ENT inspection, TMs normal, pharynx normal, moist mucous membranes Neck Exam: normal inspection, non-tender, supple, full range of motion Respiratory Exam: normal breath sounds, lungs clear, airway intact, No respiratory distress Cardiovascular Exam: regular rate/rhythm, normal heart sounds, normal peripheral pulses Gastrointestinal/Abdomen Exam: soft, normal bowel sounds, No tenderness, No mass Back Exam: normal inspection, normal range of motion, No CVA tenderness, No vertebral tenderness Extremity Exam: normal inspection, normal range of motion, pelvis stable Neurologic Exam: alert, oriented x 3, cooperative, normal mood/affect, sensation nml, No motor deficits Skin Exam: normal color, warm, dry, No rash Lymphatic Exam: No adenopathy SpO2 Interpretation: normal SpO2: 97 O2 Delivery: Room Air - Course Nursing assessment & vital signs reviewed: Yes - CT Exams Head CT Interpretation: Tele-radiologist Report (Pansinusitis) Ordered Tests: Active Orders 24 hr Category Date Time Status IV Insertion STAT Care 12/29/22 19:56 Active HEAD WITHOUT CONTRAST [CT] Stat Exams 12/29/22 20:57 Taken CBC W DIFF Stat Lab 12/29/22 20:10 Completed CMP Stat Lab 12/29/22 20:10 Completed CULTURE,URINE Stat Lab 12/29/22 19:58 Received HCG QUALITATIVE, URINE Stat Lab 12/29/22 19:58 Completed UA W/RFX UR CULTURE Stat Lab 12/29/22 19:58 Completed Medication Summary Generic Name Dose Route Start Last Admin Trade Name Freq PRN Reason Stop Dose Admin Ceftriaxone Sodium/Dextrose 1 g in 50 mls @ 100 mls/hr 12/29/22 21:47 12/29/22 21:50 Rocephin 1 Gm-D5w 50 Ml Bag IV 12/29/22 22:16 100 ml/hr STAT STA 100 mls/hr Administration Discontinued Medications Generic Name Dose Route Start Last Admin Trade Name Freq PRN Reason Stop Dose Admin Diphenhydramine HCl 50 mg 12/29/22 19:56 12/29/22 20:02 Diphenhydramine Hcl 50 Mg/Ml Vial IV 12/29/22 19:57 50 mg STAT ONE Administration Diphenhydramine HCl Confirm 12/29/22 19:59 Diphenhydramine Hcl 50 Mg/Ml Vial Administered 12/29/22 20:00 Dose 50 mg .ROUTE .STK-MED ONE Sodium Chloride 1,000 mls @ 999 mls/hr 12/29/22 19:56 12/29/22 21:03 Sodium Chloride 0.9% 1000 Ml IV 12/29/22 20:56 Infused .Q1H1M STA Infusion Sodium Chloride Confirm 12/29/22 19:59 Sodium Chloride 0.9% 1000 Ml Administered 12/29/22 20:00 Dose 1,000 mls @ ud .ROUTE .STK-MED ONE Ceftriaxone Sodium/Dextrose Confirm 12/29/22 21:48 Rocephin 1 Gm-D5w 50 Ml Bag Administered 12/29/22 21:49 Dose 1 g in 50 mls @ ud IV .STK-MED ONE Ketorolac Tromethamine 30 mg 12/29/22 19:56 12/29/22 20:02 Ketorolac Tromethamine 30 Mg/Ml Inj IV 12/29/22 19:57 30 mg STAT ONE Administration Ketorolac Tromethamine Confirm 12/29/22 19:59 Ketorolac Tromethamine 30 Mg/Ml Inj Administered 12/29/22 20:00 Dose 30 mg .ROUTE .STK-MED ONE Prochlorperazine Edisylate 10 mg 12/29/22 19:56 12/29/22 20:02 Prochlorperazine Edisylate 10 Mg/2 Ml Vial IV 12/29/22 19:57 10 mg STAT ONE Administration Prochlorperazine Edisylate Confirm 12/29/22 19:59 Prochlorperazine Edisylate 10 Mg/2 Ml Vial Administered 12/29/22 20:00 Dose 10 mg .ROUTE .STK-MED ONE Lab/Rad Data: Laboratory Result Diagrams 12/29/22 20:10 12/29/22 20:10 Laboratory Results 12/29/22 12/29/22 12/29/22 Range/Units 20:34 20:15 20:10 WBC (4.0-10.5) x10^3/uL RBC (4.1-5.4) x10^6/uL Hgb (12.0-16.0) g/dL Hct (35-47) % MCV (78-100) fL MCH (26-32) pg MCHC (32-36) g/dL RDW (11.5-14.0) % Plt Count (150-450) x10^3/uL MPV (7.5-11.0) fL Gran % (36.0-66.0) % Immature Gran % (Auto) (0.00-0.4) % Nucleat RBC Rel Count (0.00-0.1) % Eos # (Auto) (0-0.5) x10^3/uL Immature Gran # (Auto) (0.00-0.03) x10^3u/L Absolute Lymphs (auto) (1.0-4.6) x10^3/uL Absolute Monos (auto) (0.0-1.3) x10^3/uL Absolute Nucleated RBC (0.00-0.01) x10^3u/L Lymphocytes % (24.0-44.0) % Monocytes % (0.0-12.0) % Eosinophils % (0.00-5.0) % Basophils % (0.0-0.4) % Absolute Granulocytes (1.4-6.9) x10^3/uL Basophils # (0-0.4) x10^3/uL Sodium 134 L (137-145) mmol/L Potassium 3.7 (3.5-5.1) mmol/L Chloride 102 (98-107) mmol/L Carbon Dioxide 19 L (22-30) mmol/L Anion Gap 17.1 H (5-15) MEQ/L BUN 9 (7-17) mg/dL Creatinine 0.94 (0.52-1.04) mg/dL Estimated GFR 83.7 ML/MIN Glucose 110 H (74-106) mg/dL Calcium 9.2 (8.4-10.2) mg/dL Total Bilirubin 0.40 (0.2-1.3) mg/dL AST 19 (14-36) U/L ALT 16 (0-35) U/L Alkaline Phosphatase 97 (38-126) U/L Serum Total Protein 8.0 (6.3-8.2) g/dL Albumin 4.1 (3.5-5.0) g/dL Urine Color (Yellow) Urine Appearance (Clear) Urine pH (4.6-8.0) Ur Specific [place] (1.005-1.030) Urine Protein (Negative) Urine Glucose (UA) (Negative) mg/dL Urine Ketones (Negative) Urine Blood (Negative) Urine Nitrite (Negative) Urine Bilirubin (Negative) Urine Urobilinogen (0.2) mg/dL Ur Leukocyte Esterase (Negative) U Hyaline Cast (Auto) (0-2) /LPF Urine Microscopic RBC (0-5) /HPF Urine Microscopic WBC (0-5) /HPF Ur Epithelial Cells (None Seen) /HPF Urine Bacteria (None Seen) /HPF Urine Culture Reflexed (NO) Urine HCG, Qual (NEGATIVE) Influenza Type A Ag NEGATIVE (NEGATIVE) Influenza Type B Ag NEGATIVE (NEGATIVE) RSV (PCR) NEGATIVE (NEGATIVE) SARS-CoV-2 (PCR) NEGATIVE (NEGATIVE) Group A Strep Antibody NOT DETECTED (NEGATIVE) 12/29/22 12/29/22 12/29/22 Range/Units 20:10 19:58 19:58 WBC 7.3 (4.0-10.5) x10^3/uL RBC 5.79 H (4.1-5.4) x10^6/uL Hgb 13.1 (12.0-16.0) g/dL Hct 43.9 (35-47) % MCV 75.8 L (78-100) fL MCH 22.6 L (26-32) pg MCHC 29.8 L (32-36) g/dL RDW 16.1 H (11.5-14.0) % Plt Count 329 (150-450) x10^3/uL MPV 10.6 (7.5-11.0) fL Gran % 76.8 H (36.0-66.0) % Immature Gran % (Auto) 0.3 (0.00-0.4) % Nucleat RBC Rel Count 0.0 (0.00-0.1) % Eos # (Auto) 0.01 (0-0.5) x10^3/uL Immature Gran # (Auto) 0.02 (0.00-0.03) x10^3u/L Absolute Lymphs (auto) 1.02 (1.0-4.6) x10^3/uL Absolute Monos (auto) 0.61 (0.0-1.3) x10^3/uL Absolute Nucleated RBC 0.00 (0.00-0.01) x10^3u/L Lymphocytes % 14.0 L (24.0-44.0) % Monocytes % 8.4 (0.0-12.0) % Eosinophils % 0.1 (0.00-5.0) % Basophils % 0.4 (0.0-0.4) % Absolute Granulocytes 5.57 (1.4-6.9) x10^3/uL Basophils # 0.03 (0-0.4) x10^3/uL Sodium (137-145) mmol/L Potassium (3.5-5.1) mmol/L Chloride (98-107) mmol/L Carbon Dioxide (22-30) mmol/L Anion Gap (5-15) MEQ/L BUN (7-17) mg/dL Creatinine (0.52-1.04) mg/dL Estimated GFR ML/MIN Glucose (74-106) mg/dL Calcium (8.4-10.2) mg/dL Total Bilirubin (0.2-1.3) mg/dL AST (14-36) U/L ALT (0-35) U/L Alkaline Phosphatase (38-126) U/L Serum Total Protein (6.3-8.2) g/dL Albumin (3.5-5.0) g/dL Urine Color Yellow (Yellow) Urine Appearance Clear (Clear) Urine pH 6.0 (4.6-8.0) Ur Specific [place] >=1.030 A (1.005-1.030) Urine Protein Trace A (Negative) Urine Glucose (UA) Negative (Negative) mg/dL Urine Ketones 15 A (Negative) Urine Blood Negative (Negative) Urine Nitrite Negative (Negative) Urine Bilirubin Negative (Negative) Urine Urobilinogen 0.2 (0.2) mg/dL Ur Leukocyte Esterase Trace A (Negative) U Hyaline Cast (Auto) NONE SEEN (0-2) /LPF Urine Microscopic RBC 0-2 (0-5) /HPF Urine Microscopic WBC 3-5 (0-5) /HPF Ur Epithelial Cells Few (None Seen) /HPF Urine Bacteria Few A (None Seen) /HPF Urine Culture Reflexed YES (NO) Urine HCG, Qual NEGATIVE (NEGATIVE) Influenza Type A Ag (NEGATIVE) Influenza Type B Ag (NEGATIVE) RSV (PCR) (NEGATIVE) SARS-CoV-2 (PCR) (NEGATIVE) Group A Strep Antibody (NEGATIVE) - Progress Progress: improved Progress Note: 32-year-old female presents to our ED for evaluation of a headache. Physical exam otherwise nonremarkable. Neurological exam normal. Patient states she normally does not get headaches. This headache she states was significant. CT head negative for acute intracranial pathology. However a pansinusitis was o bserved. UA reveals a urinary tract infection. Patient later told us that she has been experiencing urinary symptomology including dysuria and frequency. Patient received a dose of Rocephin in our ED. A prescription for Keflex was forwarded to his pharmacy. CBC CMP nonremarkable. COVID-negative. Rapid strep negative. negative. Patient received a dose of Toradol Benadryl and Compazine. IV fluids infused. Patient now feels well. Patient voices no other complaints or concerns at this time. We will discharge home. Patient agrees to follow-up with primary care doctor within 48 hours for reevaluation. Portions of this note were created with voice recognition technology. There may be grammatical, spelling, punctuation or sound alike errors Complexity of problems addressed is moderate acute complicated Complexity of data reviewed and analyzed is moderate. Test ordered test reviewed. Results analyzed. Clinical correlation made between the results and history and physical examination. Urinalysis reviewed. UA reflex to culture. However in light of patient symptomology patient received Rocephin in our ED. Prescription forwarded to patient's pharmacy. Risk of complication and or risk of morbidity/mortality of patient management is moderate. Prescription forwarded to patient's pharmacy. Vital stable. Time spent discharge patient approximately 15 minutes. Plan of care established for shared decision making. No social determinants of health present impede follow-up. 12/29/22 21:59 Counseled pt/family regarding: lab results, diagnosis, need for follow-up, rad results - Departure Departure Disposition: Home Clinical Impression: Headache, Pansinusitis, UTI (urinary tract infection) Condition: Stable Critical Care Time: No Referrals: HARESH NUNEZ NP, RN [Primary Care Provider] - Follow up/PCP as directed Additional Instructions: Discharge/Care Plan LINDY SULLIVAN was seen on 12/29/22 in the Emergency Room. The patient was counseled regarding Diagnosis,Lab results, Imaging studies, need for follow up and when to return to the Emergency Room. Prescriptions given: Discharge Note I have spoken with the patient and/or caregivers. I have explained the patient's condition, diagnosis and treatment plan based on the information available to me at this time. I have answered the patient's and/or caregiver's questions and addressed any concerns. The patient and/or caregivers have as good understanding of the patient's diagnosis, condition and treatment plan as can be expected at this point. The vital signs have been stable. The patient's condition is stable and appropriate for discharge from the emergency department. The patient will pursue further outpatient evaluation with the primary care physician or other designated or consulting physician as outlined in the discharge instructions. The patient and/or caregivers are agreeable to this plan of care and follow-up instructions have been explained in detail. The patient and/or caregivers have received these instruction. The patient/and or caregivers are aware that any significant change in condition or worsening of symptoms should prompt an immediate return to this or the closest emergency department or call 911. Prescriptions: Cephalexin Mh 500 mg [Keflex 500 mg] 500 mg PO TID #21 cap
[2022-12-29 20:26] LABS: Absolute Neutrophil Ct (ANC) 5.57 x10^3/uL (1.4-6.9); BASOPHIL % 0.4 % (0.0-0.4); Basophil (Absolute #) 0.03 x10^3/uL (0-0.4); Eosinophil % 0.1 % (0.00-5.0); Eosinophil (Absolute #) 0.01 x10^3/uL (0-0.5); Hematocrit 43.9 % (35-47); Hemoglobin 13.1 g/dL (12.0-16.0); IMMATURE GRAN # 0.02 x10^3u/L (0.00-0.03); IMMATURE GRAN % 0.3 % (0.00-0.4); Lymphocyte (Absolute #) 1.02 x10^3/uL (1.0-4.6); Mean Cell Volume 75.8 fL (78-100); Mean Corpuscular Hemoglobin 22.6 pg (26-32); Mean Corpuscular Hgb Concent. 29.8 g/dL (32-36); Mean Platelet Volume 10.6 fL (7.5-11.0); Monocyte (Absolute #) 0.61 x10^3/uL (0.0-1.3); Monocytes % 8.4 % (0.0-12.0); Neutrophil % 76.8 % (36.0-66.0); Platelet Count 329 x10^3/uL (150-450); Red Blood Count 5.79 x10^6/uL (4.1-5.4); Red Cell Distribution Width 16.1 % (11.5-14.0); White Blood Count 7.3 x10^3/uL (4.0-10.5)
[2022-12-29 20:41] LABS: ALBUMIN 4.1 g/dL (3.5-5.0); ANION GAP 17.1 MEQ/L (5-15); BILIRUBIN,TOTAL 0.4 mg/dL (0.2-1.3); Calcium 9.2 mg/dL (8.4-10.2); Creatinine 1 0.94 mg/dL (0.52-1.04); EST GLOMERULAR FILTRATION RATE 83.7 ML/MIN; Potassium 3.7 mmol/L (3.5-5.1)
[2022-12-29 20:47] LABS: HCG URINE TEST NEGATIVE (NEGATIVE)
[2022-12-29 21:05] LABS: INFLUENZA A NEGATIVE (NEGATIVE); INFLUENZA B NEGATIVE (NEGATIVE); RESPIRATORY SYNCTIAL VIRUS NEGATIVE (NEGATIVE); SARS-CoV-2 Xpert Express NEGATIVE (NEGATIVE)
[2022-12-29 21:15] LABS: ADD URINE CULTURE? YES (NO); Appearance Clear (Clear); Bacteria Few /HPF (None Seen); Bilirubin Negative (Negative); Blood Negative (Negative); Epithelial Cells Few /HPF (None Seen); Glucose, Urine Negative (Negative); Hyaline Casts NONE SEEN /LPF (0-2); Ketones 15 (Negative); Leukocyte Esterase Trace (Negative); Nitrite Negative (Negative); Protein,Urine Dip Trace (Negative); RBC 0-2 /HPF (0-5); Specific Gravity >=1.030 (1.005-1.030); Urobilinogen 0.2 mg/dL (0.2)
[2022-12-29] MEDS ORDERED: ROCEPHIN 1 Gm-D5w 50 ml Bag** 1 G/50 ML IVPB IV STA (21:47)
[2022-12-29] MEDS ORDERED: ROCEPHIN 1 Gm-D5w 50 ml Bag** 1 G/50 ML IVPB IV ONE (21:48)
[2022-12-29 22:01] VITALS: BP 92/70; PULSE 80; RESP 16
[2022-12-29 22:05] VITALS: O2SAT 97
--- NOTE | 2022-12-30 08:38 | XRAY ---
Indication: Headache, nausea, and vomiting. Multiple contiguous axial images obtained through the head without contrast. Comparison: None Normal appearing brain parenchyma, ventricles, and bony calvarium. There is complete and near complete opacification of all paranasal sinuses. Mastoid air cells are clear. Impression: Marked pansinusitis. Remaining CT head without contrast exam is normal.
== END 2022-12-29 22:05 | disposition home or self-care (01) ==
LOC: ED 19:39
DX: J32.4 Chronic pansinusitis (principal); N39.0 Urinary tract infection, site not specified; R51.9 Headache, unspecified; R11.0 Nausea; R42 Dizziness and giddiness; Z79.85 Long-term (current) use of injectable non-insulin antidiabetic drugs; Z79.899 Other long term (current) drug therapy; Z28.310 Unvaccinated for COVID-19; Z86.16 Personal history of COVID-19; Z72.0 Tobacco use
CPT/HCPCS: 0241U; 36000; 36415; 70450; 80053; 81001; 81025; 85025; 87086; 87651; 96374; 96375; 99284; J0696; J1200; J1885

== ENCOUNTER 2024-01-28 08:06 | Emergency (ER) | payer BC ==
[2024-01-28 08:26] VITALS: RESP 18; TEMP 98
--- NOTE | 2024-01-28 08:53 | ERPHSYRPT ---
- History of Present Illness Time Seen by Provider: 01/28/24 08:51 Source: patient Exam Limitations: no limitations Patient Subjective Stated Complaint: Pt states "I had a positive home test last week and I started to bleed this morning, like a period bleed." Triage Nursing Assessment: Pt presented alert and oriented X 3, skin pwd. Pt ambulates with an upright steady gait, able to speak in clear full setences. Physician History: Pt states "I had a positive home test last week and I started to bleed this morning, like a period bleed." Timing/Duration: today Activites at Onset: none Severity of Pain-Max: none Severity of Pain-Current: none Prior abdominal problems: none Sexual intercourse history: non-contributory Modifying Factors: Improves With: nothing Associated Symptoms: Allergies/Adverse Reactions: No Known Drug Allergies Allergy (Verified 12/29/22 19:50) Home Medications: Citalopram Hydrobromide [Celexa] 40 mg PO DAILY 01/28/24 [History] Hx Tetanus, Diphtheria Vaccination/Date Given: Yes Hx Influenza Vaccination/Date Given: No Hx Pneumococcal Vaccination/Date Given: No Travel Risk - International Travel Have you traveled outside of the country in past 3 weeks: No - Emerging Infectious Disease Are you exhibiting symptoms associated with any current EIDs: No - Review of Systems Constitutional: No Fever, No Chills Eyes: No Symptoms Ears, Nose, & Throat: No Symptoms Respiratory: No Cough, No Dyspnea Cardiac: No Chest Pain, No Edema, No Syncope Abdominal/Gastrointestinal: No Abdominal Pain, No Nausea, No Vomiting, No Diarrhea Genitourinary Symptoms: Vaginal Bleeding, No Dysuria Musculoskeletal: No Back Pain, No Neck Pain Skin: No Rash Neurological: No Dizziness, No Focal Weakness, No Sensory Changes Psychological: No Symptoms Endocrine: No Symptoms All Other Systems: Reviewed and Negative - Past Medical History Pertinent Past Medical History: Yes Neurological History: No Pertinent History ENT History: No Pertinent History Cardiac History: No Pertinent History Respiratory History: Asthma, Other Endocrine Medical History: Other Musculoskeletal History: Other GI Medical History: No Pertinent History History: No Pertinent History Psycho-Social History: No Pertinent History Female Reproductive Disorders: Other Other Medical History: Gestational Diabetes (x2 pregnancies), COVID-19 x2, broken arms (x2), tonsillectomy, D&C (2018) - Past Surgical History Past Surgical History: Yes Neuro Surgical History: No Pertinent History Cardiac: No Pertinent History Respiratory: No Pertinent History Gastrointestinal: No Pertinent History Genitourinary: No Pertinent History Musculoskeletal: No Pertinent History Female Surgical History: Dilation & Curettage Other Surgical History: D&C 2017. hand 2022 - Female History Hx Last Menstrual Period: 12/25/2023 Hx Now: Yes (home test) Gestational Age: unk - Social History Smoking Status: Light tobacco smoker Exposure to second hand smoke: Yes Drug Use: none Patient Lives Alone: No - Social Determinants of Health Will the patient participate in the screening: Declined to provide - Nursing Vital Signs Nursing Vital Signs: Initial Vital Signs Blood Pressure 125/71 01/28/24 08:20 O2 Sat by Pulse Oximetry 98 01/28/24 08:20 Pain Scale Pain Intensity 0 - Physical Exam General Appearance: no apparent distress, alert Eye Exam: PERRL/EOMI, eyes nml inspection Ears, Nose, Throat Exam: normal ENT inspection, TMs normal, pharynx normal, moist mucous membranes Neck Exam: normal inspection, non-tender, supple, full range of motion Respiratory Exam: normal breath sounds, lungs clear, No respiratory distress Cardiovascular Exam: regular rate/rhythm, normal heart sounds, normal peripheral pulses Gastrointestinal/Abdomen Exam: soft, No tenderness, No mass Back Exam: normal inspection, normal range of motion, No CVA tenderness, No vertebral tenderness Extremity Exam: normal inspection, normal range of motion, pelvis stable Neurologic Exam: alert, oriented x 3, cooperative, perfume compounder II-XII nml as tested, normal mood/affect, sensation nml, No motor deficits Skin Exam: normal color, warm, dry Lymphatic Exam: No adenopathy SpO2: 99 - Course Nursing assessment & vital signs reviewed: Yes Ordered Tests: Active Orders 24 hr Category Date Time Status CULTURE,URINE Stat Lab 01/28/24 08:43 Received HCG QUALITATIVE, URINE Stat Lab 01/28/24 08:53 Completed UA W/RFX UR CULTURE Stat Lab 01/28/24 08:43 Completed Lab/Rad Data: Laboratory Results 01/28/24 01/28/24 Range/Units 08:53 08:43 Urine Color Yellow (Yellow) Urine Appearance Clear (Clear) Urine pH 5.0 (4.6-8.0) Ur Specific [place] >=1.030 A (1.005-1.030) Urine Protein Trace A (Negative) Urine Glucose (UA) Negative (Negative) mg/dL Urine Ketones Negative (Negative) Urine Blood Large A (Negative) Urine Nitrite Negative (Negative) Urine Bilirubin Negative (Negative) Urine Urobilinogen 1.0 A (0.2) mg/dL Ur Leukocyte Esterase Negative (Negative) U Hyaline Cast (Auto) NONE SEEN (0-2) /LPF Urine Microscopic RBC 6-10 A (0-5) /HPF Urine Microscopic WBC 3-5 (0-5) /HPF Ur Epithelial Cells Rare (None Seen) /HPF Urine Bacteria None Seen (None Seen) /HPF Urine Culture Reflexed YES (NO) Urine HCG, Qual NEGATIVE (NEGATIVE) - Departure Departure Disposition: Home Clinical Impression: Miscarriage Condition: Stable Critical Care Time: No Referrals: VESTA CASH MD [Primary Care Provider] - Follow up/PCP as directed Instructions: Loss (Miscarriage) ED, Coping after loss Additional Instructions: Discharge/Care Plan LINDY SULLIVAN was seen on 01/28/24 in the Emergency Room. The patient was counseled regarding Diagnosis,Lab results, Imaging studies, need for follow up and when to return to the Emergency Room. Prescriptions given: Discharge Note I have spoken with the patient and/or caregivers. I have explained the patient's condition, diagnosis and treatment plan based on the information available to me at this time. I have answered the patient's and/or caregiver's questions and addressed any concerns. The patient and/or caregivers have as good understanding of the patient's diagnosis, condition and treatment plan as can be expected at this point. The vital signs have been stable. The patient's condition is stable and appropriate for discharge from the emergency department. The patient will pursue further outpatient evaluation with the primary care physician or other designated or consulting physician as outlined in the discharge instructions. The patient and/or caregivers are agreeable to this plan of care and follow-up instructions have been explained in detail. The patient and/or caregivers have received these instruction. The patient/and or caregivers are aware that any significant change in condition or worsening of symptoms should prompt an immediate return to this or the closest emergency department or call 911. LINDY SULLIVAN was seen on 01/28/24 n the Emergency Room. At that time you were treated for an emergent condition, during your visit Laboratory, Radiology and/or other procedures may have been ordered. It is very important that you follow-up with your Primary Care Physician VESTA CASH within the next 24- 48 hours to review your Emergency Room visit and the final results of testing that was ordered. Some test results such as Urine Cultures, Blood Cultures, and other cultures if ordered will not be finalized for 24-48 hours. If you do not have a Primary Care Provider please call the medical records department at [phone] ext [phone] to obtain a copy of your results or you may sign into our patient portal to obtain these results by visiting us @ [email or web address] and completing the following steps: 1. Click on the Patient Portal link 2. Click the Patient Self Enrollment Link to complete the enrollment form and entering your 3. Once the enrollment form is completed you will receive an email with a temporary ID and password at the email address you provided. 4. Next choose a user name and password. Your user name must be at least 4 characters long and your password must be at least 4 characters long. 5. Choose a security question from the list and provide your answer to the question. If you already have signed into the Health Portal you may access your Health Care Information 13/09 by the following steps: 1. Login to our website @ [email or web address] 2. Enter your original user name and password. FAQS The [facility] Health Portal is an online tool that contains your Lab Results, Radiology Reports, Visit History, Discharge Instructions and Health Summary Lab and Radiology Results will not be available for 72 hours on the portal. The Portal is a secure site, passwords are encryted and URLs are re-written so they cannot be copied and pasted. You and authorized family members are the only ones who can access your Portal. Also there is a timeout feature that protects your information if you leave the Portal page open. If you have technical difficulty please use the Contact Us link on the page this will allow you to submit any questions you have regarding the Portal or you may contact the Medical Record Department at [phone] ext [phone]. Forms: Work/School Release Form
[2024-01-28 08:58] LABS: HCG URINE TEST NEGATIVE (NEGATIVE)
[2024-01-28 09:07] LABS: Appearance Clear (Clear); Bacteria None Seen /HPF (None Seen); Bilirubin Negative (Negative); Blood Large (Negative); Epithelial Cells Rare /HPF (None Seen); Glucose, Urine Negative (Negative); Hyaline Casts NONE SEEN /LPF (0-2); Ketones Negative (Negative); Leukocyte Esterase Negative (Negative); Nitrite Negative (Negative); Protein,Urine Dip Trace (Negative); Specific Gravity >=1.030 (1.005-1.030)
[2024-01-28 09:09] VITALS: BP 121/74; PULSE 86
[2024-01-28 09:10] VITALS: O2SAT 99
== END 2024-01-28 09:26 | disposition home or self-care (01) ==
LOC: ED 08:06
DX: O03.9 Complete or unspecified spontaneous abortion without complication (principal)
CPT/HCPCS: 81001; 81025; 87086; 99282; 99283

== ENCOUNTER 2024-05-24 04:18 | Emergency (ER) | payer BC ==
[2024-05-24 04:24] VITALS: TEMP 97.4
[2024-05-24] MEDS ORDERED: Zofran 4 MG/2 ML VIAL ONE (04:49)
[2024-05-24] MEDS ORDERED: Sodium Chloride 0.9% 1000 ML 1,000 ML ONE (04:49)
[2024-05-24] MEDS: Sodium Chloride 0.9% 1000 ML 1,000 ML IV SCH (04:52)
[2024-05-24] MEDS: Zofran 4 MG/2 ML VIAL IV ONE (04:52)
[2024-05-24 05:00] LABS: Absolute Neutrophil Ct (ANC) 3.37 x10^3/uL (1.56-6.13); BASOPHIL % 0.6 % (0.1-1.2); Basophil (Absolute #) 0.04 x10^3/uL (0.01-0.08); Eosinophil % 2.2 % (0.7-5.8); Eosinophil (Absolute #) 0.15 x10^3/uL (0.04-0.36); Hematocrit 36.6 % (34.1-44.9); Hemoglobin 11.5 g/dL (11.2-15.7); IMMATURE GRAN # 0.02 x10^3u/L (0.001-0.031); IMMATURE GRAN % 0.3 % (0.001-0.429); Lymphocyte (Absolute #) 2.71 x10^3/uL (1.18-3.74); Lymphocytes % 39.6 % (19.3-51.7); Mean Cell Volume 76.6 fL (79.4-94.8); Mean Corpuscular Hemoglobin 24.1 pg (25.6-32.2); Mean Corpuscular Hgb Concent. 31.4 g/dL (32.2-35.5); Mean Platelet Volume 11.6 fL (9.4-12.3); Monocyte (Absolute #) 0.56 x10^3/uL (0.24-0.86); Monocytes % 8.2 % (4.7-12.5); Neutrophil % 49.1 % (34.0-71.1); Platelet Count 300 x10^3/uL (182-369); Red Blood Count 4.78 x10^6/uL (3.93-5.22); Red Cell Distribution Width 14.6 % (11.7-14.4); White Blood Count 6.9 x10^3/uL (3.98-10.04)
[2024-05-24 05:13] LABS: ALBUMIN 4.3 g/dL (3.5-5.0); ANION GAP 17.4 MEQ/L (5-15); BILIRUBIN,TOTAL 0.4 mg/dL (0.2-1.3); Calcium 9.2 mg/dL (8.4-10.2); Creatinine 1 0.85 mg/dL (0.52-1.04); EST GLOMERULAR FILTRATION RATE 93.9 ML/MIN; Potassium 3.5 mmol/L (3.5-5.1); Total Protein 7.6 g/dL (6.3-8.2)
[2024-05-24 05:20] LABS: Appearance Cloudy (Clear); Bacteria None Seen /HPF (None Seen); Bilirubin Negative (Negative); Blood Negative (Negative); Epithelial Cells None Seen /HPF (None Seen); Glucose, Urine Negative (Negative); Hyaline Casts NONE SEEN /LPF (0-2); Ketones 15 (Negative); Leukocyte Esterase Negative (Negative); Nitrite Negative (Negative); Ph 6.5 (4.6-8.0); Protein,Urine Dip Negative (Negative); RBC 0-2 /HPF (0-5); Specific Gravity 1.025 (1.005-1.030); WBC 0-2 /HPF (0-5)
[2024-05-24 06:04] VITALS: RESP 19
[2024-05-24] MEDS ORDERED: TYLENOL EXTRA STRENGTH 500 MG ONE (06:32)
[2024-05-24] MEDS: TYLENOL EXTRA STRENGTH 500 MG PO STA (06:35)
[2024-05-24 06:40] LABS: HCG URINE TEST NEGATIVE (NEGATIVE)
--- NOTE | 2024-05-24 06:45 | ERPHSYRPT ---
- History of Present Illness Time Seen by Provider: 05/24/24 06:39 Historian: patient, EMS Exam Limitations: no limitations Patient Subjective Stated Complaint: I was painting a room and I started having abdominal pain and vomited x3, started to panic and got sob but I don't feel sob now. Triage Nursing Assessment: Pt brought in by EMS. Pt c/o abd pain all across the abd region. Pt was painting a room in the house, took a break and ate at 0330, and then started painting again and that's when the abd pain occured. Pt was nauseated, vomited x3, denies any diarrhea. Abd soft with active bs x4 quad, nontender on palaption. Pt c/o dizziness, states, "I'm not sure why I'm dizzy if it's from the paint fumes or what". LBM 05/22/24. Pt is currently taking phentermine for weight loss. Physician History: 33-year-old female presented to the ER by EMS with complaints of upper abdominal pain with nausea sudden onset around 1 AM while she was painting at home. Patient reports 3 episodes of nonprojectile, nonbilious vomiting followed by pain in the upper abdomen. Patient reports she started panicking and was short of breath and dizzy/lightheaded. Shortness of breath and abdominal pain is improved on presentation in the ER. Patient later on reports developing some headache and sinus/nasal congestion but has history of sinus congestion. Allergies/Adverse Reactions: No Known Drug Allergies Allergy (Verified 05/24/24 04:25) Home Medications: Citalopram Hydrobromide [Celexa] 40 mg PO DAILY 01/28/24 [History] Albuterol Sulfate [Albuterol Sulfate Hfa] 2 puffs IH Q4-6HPRN PRN 05/24/24 [History] Ethinyl Estradiol/Drospirenone [Vestura 3 mg-0.02 mg Tablet] 1 tab PO HS 05/24/24 [History] Phentermine HCl 37.5 mg PO HS 05/24/24 [History] Hx Tetanus, Diphtheria Vaccination/Date Given: Yes Hx Influenza Vaccination/Date Given: No Hx Pneumococcal Vaccination/Date Given: No Travel Risk - International Travel Have you traveled outside of the country in past 3 weeks: No - Emerging Infectious Disease Are you exhibiting symptoms associated with any current EIDs: Yes Symptoms: Abdominal Pain, Vomitting - Review of Systems Constitutional: Fatigue Eyes: No Symptoms Ears, Nose, & Throat: Nose Congestion, Sinus Drainage Respiratory: No Symptoms Cardiac: No Symptoms Abdominal/Gastrointestinal: Abdominal Pain, Nausea, Vomiting Genitourinary Symptoms: No Symptoms Endocrine: No Symptoms Hematologic/Lymphatic: No Symptoms - Past Medical History Pertinent Past Medical History: Yes Neurological History: No Pertinent History ENT History: No Pertinent History Cardiac History: No Pertinent History Respiratory History: Asthma, Other Endocrine Medical History: Other Musculoskeletal History: Other GI Medical History: No Pertinent History History: No Pertinent History Psycho-Social History: No Pertinent History Female Reproductive Disorders: Other Other Medical History: Gestational Diabetes (x2 pregnancies), COVID-19 x2, broken arm, tonsillectomy, D&C (2018), miscarriage - Past Surgical History Past Surgical History: Yes Neuro Surgical History: No Pertinent History Cardiac: No Pertinent History Respiratory: No Pertinent History Gastrointestinal: No Pertinent History Genitourinary: No Pertinent History Musculoskeletal: No Pertinent History Female Surgical History: Dilation & Curettage Other Surgical History: D&C 2017. hand 2022 - Female History Hx Last Menstrual Period: 04/23/24 Hx Now: No - Social History Smoking Status: Current every day smoker How long have you smoked: 15 yrs Exposure to second hand smoke: No Drug Use: none - Social Determinants of Health Will the patient participate in the screening: Yes Do you worry about a steady place to live?: No Do you have any problems with any of the following?: No known problems In the past 12 months,have you had to go without utilities?: No Transportation Issues: No Has anyone in your support network made you feel unsafe?: No Have you or anyone in your house had to go w/o enough food: No - Nursing Vital Signs Nursing Vital Signs: Initial Vital Signs Temperature 97.4 F 05/24/24 04:21 Pulse Rate 75 05/24/24 04:21 Respiratory Rate 16 05/24/24 04:21 Blood Pressure 108/74 05/24/24 04:21 O2 Sat by Pulse Oximetry 100 05/24/24 04:21 Pain Scale Pain Intensity 0 - Physical Exam General Appearance: no apparent distress, alert Eye Exam: PERRL/EOMI Ears, Nose, Throat Exam: moist mucous membranes, pharyngeal erythema Neck Exam: normal inspection, non-tender, supple, full range of motion Respiratory Exam: normal breath sounds, lungs clear Cardiovascular Exam: regular rate/rhythm, normal heart sounds Gastrointestinal/Abdomen Exam: soft, normal bowel sounds, No tenderness, No distention Extremity Exam: normal inspection, normal range of motion Neurologic Exam: alert, oriented x 3, cooperative, fortune cookie maker II-XII nml as tested, sensation nml, No motor deficits Skin Exam: normal color SpO2 Interpretation: normal SpO2: 100 O2 Delivery: Room Air Ordered Tests: Active Orders 24 hr Category Date Time Status CBC W DIFF Stat Lab 05/24/24 04:57 Completed CMP Stat Lab 05/24/24 04:57 Completed HCG QUALITATIVE, URINE Stat Lab 05/24/24 06:31 Completed LIPASE Stat Lab 05/24/24 04:57 Completed UA W/RFX UR CULTURE Stat Lab 05/24/24 05:09 Completed Medication Summary Discontinued Medications Generic Name Dose Route Start Last Admin Trade Name Freq PRN Reason Stop Dose Admin Acetaminophen 1,000 mg 05/24/24 06:29 05/24/24 06:35 Acetaminophen 500 Mg Tablet PO 05/24/24 06:30 1,000 mg STAT STA Administration Acetaminophen Confirm 05/24/24 06:32 Acetaminophen 500 Mg Tablet Administered 05/24/24 06:33 Dose 1,000 mg .ROUTE .STK-MED ONE Sodium Chloride 1,000 mls @ 999 mls/hr 05/24/24 05:00 05/24/24 07:11 Sodium Chloride 0.9% 1000 Ml IV 06/23/24 04:59 Not Given .Q1H1M [place] Sodium Chloride Confirm 05/24/24 04:49 Sodium Chloride 0.9% 1000 Ml Administered 05/24/24 04:50 Dose 1,000 mls @ ud .ROUTE .STK-MED ONE Ketorolac Tromethamine 30 mg 05/24/24 06:46 05/24/24 07:11 Ketorolac Tromethamine 30 Mg/Ml Inj IM 05/24/24 06:47 30 mg STAT ONE Administration Ketorolac Tromethamine Confirm 05/24/24 07:06 Ketorolac Tromethamine 30 Mg/Ml Inj Administered 05/24/24 07:07 Dose 30 mg .ROUTE .STK-MED ONE Ondansetron HCl 4 mg 05/24/24 04:47 05/24/24 04:52 Ondansetron Hcl 4 Mg/2 Ml Vial IV 05/24/24 04:48 4 mg STAT ONE Administration Ondansetron HCl Confirm 05/24/24 04:49 Ondansetron Hcl 4 Mg/2 Ml Vial Administered 05/24/24 04:50 Dose 4 mg .ROUTE .K-MED ONE Lab/Rad Data: Laboratory Result Diagrams 05/24/24 04:57 05/24/24 04:57 Laboratory Results 05/24/24 05/24/24 05/24/24 Range/Units 06:31 05:09 04:57 WBC (3.98-10.04) x10^3/uL RBC (3.93-5.22) x10^6/uL Hgb (11.2-15.7) g/dL Hct (34.1-44.9) % MCV (79.4-94.8) fL MCH (25.6-32.2) pg MCHC (32.2-35.5) g/dL RDW (11.7-14.4) % Plt Count (182-369) x10^3/uL MPV (9.4-12.3) fL Gran % (34.0-71.1) % Immature Gran % (Auto) (0.001-0.429) % Nucleat RBC Rel Count (0.00-0.2) % Eos # (Auto) (0.04-0.36) x10^3/uL Immature Gran # (Auto) (0.001-0.031) x10^3u/L Absolute Lymphs (auto) (1.18-3.74) x10^3/uL Absolute Monos (auto) (0.24-0.86) x10^3/uL Absolute Nucleated RBC (0.00-0.012) x10^3u/L Lymphocytes % (19.3-51.7) % Monocytes % (4.7-12.5) % Eosinophils % (0.7-5.8) % Basophils % (0.1-1.2) % Absolute Granulocytes (1.56-6.13) x10^3/uL Basophils # (0.01-0.08) x10^3/uL Sodium (135-145) mmol/L Potassium (3.5-5.1) mmol/L Chloride (98-107) mmol/L Carbon Dioxide (22-30) mmol/L Anion Gap (5-15) MEQ/L BUN (7-17) mg/dL Creatinine (0.52-1.04) mg/dL Estimated GFR ML/MIN Glucose (74-106) mg/dL Calcium (8.4-10.2) mg/dL Total Bilirubin (0.2-1.3) mg/dL AST (14-36) U/L ALT (0-35) U/L Alkaline Phosphatase (38-126) U/L Serum Total Protein (6.3-8.2) g/dL Albumin (3.5-5.0) g/dL Lipase 122 (23-300) U/L Urine Color Yellow (Yellow) Urine Appearance Cloudy A (Clear) Urine pH 6.5 (4.6-8.0) Ur Specific [place] 1.025 (1.005-1.030) Urine Protein Negative (Negative) Urine Glucose (UA) Negative (Negative) mg/dL Urine Ketones 15 A (Negative) Urine Blood Negative (Negative) Urine Nitrite Negative (Negative) Urine Bilirubin Negative (Negative) Urine Urobilinogen 1.0 A (0.2) mg/dL Ur Leukocyte Esterase Negative (Negative) U Hyaline Cast (Auto) NONE SEEN (0-2) /LPF Urine Microscopic RBC 0-2 (0-5) /HPF Urine Microscopic WBC 0-2 (0-5) /HPF Ur Epithelial Cells None Seen (None Seen) /HPF Urine Bacteria None Seen (None Seen) /HPF Urine Culture Reflexed NO (NO) Urine HCG, Qual NEGATIVE (NEGATIVE) 05/24/24 05/24/24 Range/Units 04:57 04:57 WBC 6.9 (3.98-10.04) x10^3/uL RBC 4.78 (3.93-5.22) x10^6/uL Hgb 11.5 (11.2-15.7) g/dL Hct 36.6 (34.1-44.9) % MCV 76.6 L (79.4-94.8) fL MCH 24.1 L (25.6-32.2) pg MCHC 31.4 L (32.2-35.5) g/dL RDW 14.6 H (11.7-14.4) % Plt Count 300 (182-369) x10^3/uL MPV 11.6 (9.4-12.3) fL Gran % 49.1 (34.0-71.1) % Immature Gran % (Auto) 0.3 (0.001-0.429) % Nucleat RBC Rel Count 0.0 (0.00-0.2) % Eos # (Auto) 0.15 (0.04-0.36) x10^3/uL Immature Gran # (Auto) 0.02 (0.001-0.031) x10^3u/L Absolute Lymphs (auto) 2.71 (1.18-3.74) x10^3/uL Absolute Monos (auto) 0.56 (0.24-0.86) x10^3/uL Absolute Nucleated RBC 0.00 (0.00-0.012) x10^3u/L Lymphocytes % 39.6 (19.3-51.7) % Monocytes % 8.2 (4.7-12.5) % Eosinophils % 2.2 (0.7-5.8) % Basophils % 0.6 (0.1-1.2) % Absolute Granulocytes 3.37 (1.56-6.13) x10^3/uL Basophils # 0.04 (0.01-0.08) x10^3/uL Sodium 138 (135-145) mmol/L Potassium 3.5 (3.5-5.1) mmol/L Chloride 106 (98-107) mmol/L Carbon Dioxide 18 L (22-30) mmol/L Anion Gap 17.4 H (5-15) MEQ/L BUN 13 (7-17) mg/dL Creatinine 0.85 (0.52-1.04) mg/dL Estimated GFR 93.9 ML/MIN Glucose 125 H (74-106) mg/dL Calcium 9.2 (8.4-10.2) mg/dL Total Bilirubin 0.40 (0.2-1.3) mg/dL AST 24 (14-36) U/L ALT 16 (0-35) U/L Alkaline Phosphatase 78 (38-126) U/L Serum Total Protein 7.6 (6.3-8.2) g/dL Albumin 4.3 (3.5-5.0) g/dL Lipase (23-300) U/L Urine Color (Yellow) Urine Appearance (Clear) Urine pH (4.6-8.0) Ur Specific [place] (1.005-1.030) Urine Protein (Negative) Urine Glucose (UA) (Negative) mg/dL Urine Ketones (Negative) Urine Blood (Negative) Urine Nitrite (Negative) Urine Bilirubin (Negative) Urine Urobilinogen (0.2) mg/dL Ur Leukocyte Esterase (Negative) U Hyaline Cast (Auto) (0-2) /LPF Urine Microscopic RBC (0-5) /HPF Urine Microscopic WBC (0-5) /HPF Ur Epithelial Cells (None Seen) /HPF Urine Bacteria (None Seen) /HPF Urine Culture Reflexed (NO) Urine HCG, Qual (NEGATIVE) - Progress Progress: improved Progress Note: 05/24/24 07:11 No abdominal pain, fairly unremarkable lab work, given fluids, no nausea, given Tylenol and Toradol for symptomatic relief of headache. Refused COVID and flu testing. No tenderness in right upper quadrant, do not need think needs imaging. 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 Follow-up with primary care for relation. Return to ER for any worsening.
[2024-05-24 07:04] VITALS: BP 113/73; PULSE 67
[2024-05-24] MEDS ORDERED: TORAdol 30 mg Injection ONE (07:06)
[2024-05-24] MEDS: TORAdol 30 mg Injection IM ONE (07:11)
[2024-05-24 07:13] VITALS: O2SAT 100
== END 2024-05-24 07:30 | disposition home or self-care (01) ==
LOC: ED 04:18
DX: B34.9 Viral infection, unspecified (principal); R11.2 Nausea with vomiting, unspecified; R10.10 Upper abdominal pain, unspecified; Z79.899 Other long term (current) drug therapy; Z72.0 Tobacco use
CPT/HCPCS: 36415; 80053; 81001; 81025; 83690; 85025; 96361; 96374; 99284; J1885; J2405; A9270-GY